=== PATIENT | female | born 2000 | race Caucasian/White ===

== ENCOUNTER 2020-11-10 20:09 | Emergency (ER) | payer BC, OTHER ==
[2020-11-10] MEDS ORDERED: HYDROmorphone 0.5 MG/0.5 ML Syringe IVPUSH ONE (20:37)
[2020-11-10] MEDS ORDERED: HYDROmorphone 0.5 MG/0.5 ML Syringe ONE (20:39)
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
[2020-11-10] MEDS ORDERED: Diphtheria,Pertussis(Acell),Tetanus Vaccine 0.5 ML Syringe IM ONE (21:50)
[2020-11-10] MEDS ORDERED: ceFAZolin 1 GM in Premix Bag 1 BAG IV ONE (21:51)
[2020-11-10] MEDS ORDERED: Tranexamic Acid 1,000 MG in Sodium Chloride 0.9% 50 ML IV ONE (21:52)
[2020-11-10] MEDS ORDERED: Sodium Chloride 0.9% 50 ML ONE (21:57)
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
[2020-11-10] MEDS: ceFAZolin 1 GM Vial ONE ×2 (22:07→22:12)
[2020-11-10] MEDS ORDERED: Bacitracin Oint 1 GM U/D Packet TOP ONE (22:24)
[2020-11-10 22:26] LABS: CORONAVIRUS COVID-19 NAA NEGATIVE (NEGATIVE)
[2020-11-10] MEDS ORDERED: Sodium Chloride 0.9% 10 ML SDV FLUSH ONE (22:37)
[2020-11-10] MEDS ORDERED: Iopamidol 612 MG/ML 100 ML Bottle IV PRN (22:37)
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
[2020-11-10] MEDS ORDERED: Sodium Chloride 0.9% 100 ML IV SCH (22:45)
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
== END 2020-11-10 22:30 ==
LOC: JP.ED 20:09
DX: S06.0X1A Concussion with loss of consciousness of 30 minutes or less, initial encounter (principal); S01.112A Laceration without foreign body of left eyelid and periocular area, initial encounter; S20.212A Contusion of left front wall of thorax, initial encounter; S27.321A Contusion of lung, unilateral, initial encounter; F10.920 Alcohol use, unspecified with intoxication, uncomplicated; Z23 Encounter for immunization; Z20.822 Contact with and (suspected) exposure to COVID-19; V86.99XA Unspecified occupant of other special all-terrain or other off-road motor vehicle injured in nontraffic accident, initial encounter
CPT/HCPCS: 0241U; 12013; 36415; 70450; 71260; 72125; 74177; 80053; 80307; 85025; 85610; 85730; 90471; 90715; 96365; 96375; 99285-25; 99291; J0690; J1170; Q9967